=== PATIENT | male | born 1990 | race Hispanic/Latino ===

== ENCOUNTER 2020-03-02 14:09 | Emergency (ER) | payer OTHER, SELFPAY ==
--- NOTE | 2020-03-02 14:35 | ED.UPPEXIN ---
HPI - Extremity Injury (Upper) General Chief Complaint: Wound/Laceration Stated Complaint: finger injury Source: patient and RN notes reviewed Mode of arrival: ambulatory Limitations: no limitations Related Data Home Medications Medication Instructions Recorded Confirmed No Home Medications 03/02/20 03/02/20 Allergies Allergy/AdvReac Type Severity Reaction Status Date / Time No Known Allergies Allergy Unverified 09/11/17 19:13 Review of Systems Review of Systems: Narrative: CONSTITUTIONAL: Denies malaise, chills, sweats, or fever. EYES: Denies visual changes, redness, or discharge. ENT: Denies rhinorrhea, congestion, sinus pain, otalgia or sore throat. CARDIOVASCULAR: Denies chest pain, palpitations, or edema. RESPIRATORY: Denies cough or dyspnea. GASTROINTESTINAL: Denies abdominal pain, nausea, vomiting, diarrhea, bloody, or mucous stools. GENITOURINARY: Denies dysuria or hematuria. SKIN: Denies rash or itching. MUSCULOSKELETAL: Denies back pain, joint pain, or myalgia. NEUROLOGIC: Denies numbness, weakness, or headache. PSYCHIATRIC: Denies anxiety or depression. All systems reviewed & are unremarkable except as noted in HPI and below PMFSH Comments At time of signature, agree with nursing past medical, surgical, social and family history. There is no relevant family history pertinent to the presenting complaint Exam Narrative: Exam Narrative: GENERAL: Well-appearing, well-nourished, and in no acute distress. HEAD: Normocephalic, atraumatic. EYES: PERRLA, conjunctivae clear NECK: Supple. CHEST: Speaks in full sentences. No respiratory distress. HEART: Regular rate and rhythm. Normal and equal peripheral pulses. EXTREMITIES: Right/Left hand and digits of hand have normal strength and sensation. 5/5 strength with digit flexion, extension. Range of motion normal. No clubbing, cyanosis, or edema noted. No tenderness. Skin intact. Normal digital cascade with flexion of fingers, median, ulnar and radial nerve intact. Normal sensation of each side of finger. Can perform 'okay' sign, 'cross over finger test of index and middle fingers' and 'thumbs up' sign. No scissoring. Normal thumb opposition. Good capillary refill and radial pulse. Distal capillary refill ?3 seconds. NEURO: Alert and oriented x3. PSYCH: Normal mood and affect Course Course Emergency Course: Patient is aware of diagnosis, understands and agrees to treatment plan. Anticipatory guidance given. Patient agrees to follow-up as directed and is aware of reasons to seek care at the emergency department. Portions of this record may have been created with voice recognition software Vital Signs Vital signs: Reviewed. Critical Care Time Critical Care Time Critical Care Time: No Discharge Plan Discharge Prescriptions: No Action No Home Medications RF: 0
[2020-03-02 14:36] VITALS: BP 133/78; PULSE 85; RESP 16; TEMP 36.9; O2SAT 99
--- NOTE | 2020-03-02 14:44 | ED.WOUNDLAC ---
HPI - Wound/Laceration General Chief Complaint: Wound/Laceration Stated Complaint: finger injury Time Seen by Provider: 03/02/20 14:44 Source: patient and RN notes reviewed Mode of arrival: ambulatory Limitations: no limitations History of Present Illness HPI narrative: 29-year-old male presents with concern for laceration to the third digit of his right hand palmar aspect of the tip of the digit. Reports he stuck his hand and side of a truck and cut it on something metal, he is unsure what. He reports he had a tetanus shot last year. Extremity Location: Right: hand Related Data Home Medications Medication Instructions Recorded Confirmed No Home Medications 03/02/20 03/02/20 Allergies Allergy/AdvReac Type Severity Reaction Status Date / Time No Known Allergies Allergy Unverified 09/11/17 19:13 Review of Systems Review of Systems: Narrative: CONSTITUTIONAL: Denies malaise, chills, sweats, or fever. SKIN: Reports laceration to the tip of the third digit of the right hand in the palmar aspect MUSCULOSKELETAL: Denies decreased strength or range of motion NEUROLOGIC: Denies numbness, weakness. All systems reviewed & are unremarkable except as noted in HPI and below PMFSH Comments At time of signature, agree with nursing past medical, surgical, social and family history. There is no relevant family history pertinent to the presenting complaint Exam Narrative: Exam Narrative: GENERAL: Well-appearing, well-nourished, and in no acute distress. HEAD: Normocephalic, atraumatic. EYES: PERRLA, conjunctivae clear NECK: Supple. CHEST: Speaks in full sentences. No respiratory distress. HEART: Regular rate and rhythm. Normal and equal peripheral pulses. EXTREMITIES: Right third digit digits of hand have normal strength and sensation. 5/5 strength with digit flexion, extension. Range of motion normal. No clubbing, cyanosis, or edema noted. No tenderness. Normal digital cascade with flexion of fingers, median, ulnar and radial nerve intact. Normal sensation of each side of finger. Can perform 'okay' sign, 'cross over finger test of index and middle fingers' and 'thumbs up' sign. No scissoring. Normal thumb opposition. Good capillary refill and radial pulse. Distal capillary refill ?3 seconds. Skin: 2 cm linear but slightly irregular laceration into the subcutaneous tissue noted to the palmar aspect of the third digit beyond the DIP joint NEURO: Alert and oriented x3. PSYCH: Normal mood and affect Extrem: Hand/finger images: 1. Laceration Course Course Emergency Course: Patient is aware of diagnosis, understands and agrees to treatment plan. Anticipatory guidance given. Patient agrees to follow-up as directed and is aware of reasons to seek care at the emergency department. Portions of this record may have been created with voice recognition software Vital Signs Vital signs: Vital Signs Temperature 98.4 F 03/02/20 14:36 Pulse Rate 85 03/02/20 14:36 Respiratory Rate 16 03/02/20 14:36 Blood Pressure 133/78 03/02/20 14:36 Pulse Oximetry 99 03/02/20 14:36 Temperature 98.4 F 03/02/20 14:36 Pulse Rate 85 03/02/20 14:36 Respiratory Rate 16 03/02/20 14:36 Blood Pressure 133/78 03/02/20 14:36 Pulse Oximetry 99 03/02/20 14:36 Reviewed. Pt has been instructed to follow up with his primary care provider within the next week regarding his elevated blood pressure today. Procedures Laceration Laceration 1: Date: 03/02/20 Time: 14:50 Site: hand Side (If applicable): right Size (cm): 2 Description: irregular Depth: simple, single layer Local Anesthetic: lidocaine 1% Amount of anesthesia used (mL): 2 ====== Skin Level ====== Skin layer closed with: nylon Size (cm): 5-0 Number of sutures: 6 Technique: simple, interrupted ====== Subcutaneous Layer ====== ====== Muscle Layer ====== =====
== END 2020-03-02 15:27 | disposition home or self-care (01) ==
PROVIDERS: Emergency Provider Nurse Practitioner
DX: S61.212A Laceration without foreign body of right middle finger without damage to nail, initial encounter (principal); W22.8XXA Striking against or struck by other objects, initial encounter
CPT/HCPCS: 12001; 99212; G0463

== ENCOUNTER 2020-03-14 15:31 | Emergency (ER) | payer OTHER, SELFPAY ==
[2020-03-14 15:48] VITALS: BP 132/81; PULSE 74; RESP 16; TEMP 37.1; O2SAT 99
--- NOTE | 2020-03-14 15:55 | ED.WOUNDLAC ---
HPI - Wound/Laceration General Chief Complaint: Wound/Laceration Stated Complaint: Stitches removal Time Seen by Provider: 03/14/20 15:55 Source: patient and RN notes reviewed Mode of arrival: ambulatory Limitations: no limitations History of Present Illness HPI narrative: This is a 29 years old male presented office for suture removal. He reports that the wound is healing well; however one of the stitches came off by itself two days ago. He also reports tingling sensation on the tip of his finger; which he had when he cut his finger and it is still there. I reviewed patient's previous visit. HPI - Wound/Laceration General Chief Complaint: Wound/Laceration Stated Complaint: finger injury Time Seen by Provider: 03/02/20 14:44 Source: patient and RN notes reviewed Mode of arrival: ambulatory Limitations: no limitations History of Present Illness HPI narrative: 29-year-old male presents with concern for laceration to the third digit of his right hand palmar aspect of the tip of the digit. Reports he stuck his hand and side of a truck and cut it on something metal, he is unsure what. He reports he had a tetanus shot last year. Extremity Location: Right: hand Related Data Home Medications Medication Instructions Recorded Confirmed No Home Medications 03/02/20 03/14/20 Allergies Allergy/AdvReac Type Severity Reaction Status Date / Time No Known Allergies Allergy Unverified 03/14/20 15:49 Review of Systems Review of Systems: Narrative: CONSTITUTIONAL: Denies fever or feeling ill CARDIOVASCULAR: Denies chest pain RESPIRATORY: Denies dyspnea GASTROINTESTINAL: Denies nausea, vomiting SKIN: Denies redness/swollen MUSCULOSKELETAL: Reports tingling sensation on the tip of his third digit NEUROLOGIC: Denies focal weakness All other systems reviewed are negative, except as documented in HPI. PMFSH Comments At time of signature, I agree with nursing past medical, surgical, social and family history. There is no relevant family history pertinent to the presenting complaint. Exam Narrative: Exam Narrative: GENERAL: This is a well-nourished, well-developed patient, in no apparent distress. CARDIOVASCULAR: Regular rate and rhythm without murmurs, gallops, or rubs. RESPIRATORY: Clear to auscultation. Breath sounds equal bilaterally. No wheezes, rales, or rhonchi. GASTROINTESTINAL: Abdomen soft, non-tender, nondistended. Bowel sounds are active. No guarding. NEURO: awake, alert, and oriented to person, place and time. There were no obvious focal neurologic abnormalities. Steady gait EXTREMITIES: Normal range of motion in all fingers with brisk cap refill. No edema.Left distal dorsal third phalange noted 5stitches; wound is healing as expected. Wound is cleaned with alcohol swap prior to removal of stitches. No adverse effect [place] Coma Scale Eye Opening: Spontaneous 4 [place]uc[place] Coma Scale Motor: Obeys Commands 6 Arlette Coma Scale Verbal: Oriented 5 Course Vital Signs Vital signs: Vital Signs Temperature 98.7 F 03/14/20 15:48 Pulse Rate 74 03/14/20 15:48 Respiratory Rate 16 03/14/20 15:48 Blood Pressure 132/81 03/14/20 15:48 Pulse Oximetry 99 03/14/20 15:48 Temperature 98.7 F 03/14/20 15:48 Pulse Rate 74 03/14/20 15:48 Respiratory Rate 16 03/14/20 15:48 Blood Pressure 132/81 03/14/20 15:48 Pulse Oximetry 99 03/14/20 15:48 MDM - Wound/Laceration MDM Narrative Medical decision making narrative: Discharge instructions reviewed with patient, as well as provided in writing per nursing staff. The instructions also include specific and strict return/GO TO THE ER as well as f/u information. All questions have been answered, and the patient deny any further questions with discharge and discharge plan. Differential Diagnosis Differential diagnosis: Likely other (wound care) Critical Care Time Critical Care Time Critical Care Time: No Discharge Plan Discharge Clinical Impres
== END 2020-03-14 16:05 | disposition home or self-care (01) ==
PROVIDERS: Emergency Provider Nurse Practitioner
DX: S61.212D Laceration without foreign body of right middle finger without damage to nail, subsequent encounter (principal); W22.8XXD Striking against or struck by other objects, subsequent encounter
CPT/HCPCS: 99211; G0463

== ENCOUNTER 2021-12-05 16:01 | Emergency (ER) | payer OTHER, SELFPAY ==
--- NOTE | ~2021-12-05 | XR_ITS ---
EXAMINATION: XR lumbar spine 2-3V EXAM DATE: 12/05/2021 17:07 INDICATION: Left low back pain? etiology. TECHNIQUE: Lumber spine frontal, lateral, lateral L5-S1 projections for interpretation. Comparison is made to prior examination from 05/09/2017. FINDINGS: There are no bony erosions identified. Mild lumbar facet arthropathy. Neck were aligned in Sacrum, sacroiliac joints, sacral arcuate lines are intact. Paraspinal soft tissue is unremarkable. There is no significant interval change. IMPRESSION: Mild lumbar facet arthropathy. Reviewed, dictated and finalized at location G.
[2021-12-05 16:09] VITALS: BP 139/72; PULSE 64; RESP 16; TEMP 37.1; O2SAT 99
--- NOTE | 2021-12-05 16:29 | ED.BACK ---
HPI - Back Pain/Injury General Chief Complaint: Back Pain/Injury Stated Complaint: PAIN LOWER BACK Time Seen by Provider: 12/05/21 16:30 Source: patient, family and RN notes reviewed Mode of arrival: ambulatory Limitations: no limitations History of Present Illness HPI Narrative: 30-year-old male presents to the [facility] with complaints of left lower back pain without injury. Patient states a few years ago had the same complaint. States that he was given arthritis MD elicited complaint: back pain Related Data Allergies Allergy/AdvReac Type Severity Reaction Status Date / Time No Known Allergies Allergy Verified 12/05/21 16:39 Review of Systems Review of Systems: All systems reviewed & are unremarkable except as noted in HPI and below Constitutional: Constitutional: Reports no additional constitutional complaints, Denies fatigue and Denies weakness Eyes: Eyes: Reports no additional eye complaints ENT: Reports system reviewed and no additional complaints, except as documented Cardiovascular: Cardiovascular: Reports no additional cardiovascular complaints and Denies chest pain Respiratory: Respiratory: Reports no additional respiratory complaints, Denies cough and Denies dyspnea Gastrointestinal: Gastrointestinal: Reports no additional gastrointestinal complaints, Denies abdominal pain, Denies constipation, Denies diarrhea, Denies nausea and Denies vomiting Musculoskeletal: Musculoskeletal: Reports as per HPI, Reports back pain (Left lower) and Denies numbness Integumentary/Breasts: Skin/Breast: Reports system reviewed and no additional complaints, except as docu Neurologic: Reports system reviewed and no additional complaints, except as documented, Denies focal weakness, Denies numbness and Denies weakness Psychiatric: Psychiatric: Reports no additional psychiatric complaints Allergic/Immunologic: Allergic/Immunologic: Reports no additional allergic/immunologic complaints PMFSH Comments At the time of my signature, I reviewed and agree with the nursing past medical, surgical, social, and family history. There is no relevant family history pertinent to the patient complaint. Exam Const: General: healthy appearing, no acute distress, alert, acute distress (Pain) mild, uncomfortable and well groomed Nutritional Appearance: well nourished Orientation/consciousness: patient oriented x3 Limitations: no limitations HENMT: Head: normal to inspection Ears: external ears normal Eyes: Pupils: Equal, round and reactive pupils present Neck: Neck: normal visual inspection, no lymphadenopathy and no meningeal signs Chest: Chest palpation & inspection: normal inspection of the chest Resp: Effort & Inspection: normal respiratory effort and no use of accessory muscles Auscultation: clear to auscultation bilaterally, no crackles, no rales, no rhonchi and no wheezes Cardio: Rate: regular rate Rhythm: regular rhythm GI: GI Palp: Yes Soft to palpation, No Tenderness to palpation present (GI) and No Guarding due to palpation present (GI) Back/Spine/Pelvis: Back: No erythema and No warmth Cervical Spine: normal cervical lordosis, No Cervical spine tenderness and No step off deformity Thoracic/Lumbar Spine: thoracic and lumbar spine normal to inspection, No thoraco-lumbar spasm, No thoracic spinal tenderness and No lumbar spinal tenderness Pelvis: no pain with anterior-posterior compression and no pain with lateral compression Sacroiliac joints: on the left tender to palpation Sacrum: no ecchymosis and no erythema Back/spine/pelvis image: 1. Pain with movement, changing position, palpation Skin: General skin exam: normal color Rashes: no rashes Wounds: no wounds Neuro: General: patient oriented x3, moves all extremities, no meningeal signs and no focal motor deficits Cranial nerves: Yes Equal, round and reactive pupils present Speech: normal speech Gait exam (Neuro): Normal gait present Extrem: General: normal to in
[2021-12-05] MEDS: KETOROLAC (*BKC) 60 MG/2 ML VIAL IM (16:50)
== END 2021-12-05 17:40 | disposition home or self-care (01) ==
PROVIDERS: Emergency Provider Nurse Practitioner
DX: M47.816 Spondylosis without myelopathy or radiculopathy, lumbar region (principal)
CPT/HCPCS: 72100; 96372; 99213; G0463; J1885

== ENCOUNTER 2021-12-19 17:26 | Emergency (ER) | payer OTHER, SELFPAY ==
--- NOTE | ~2021-12-19 | XR_ITS ---
EXAMINATION: XR chest 2V Exam Date/Time: 12/19/2021 18:00 CDT CLINICAL HISTORY: LT SIDE SHARP CP WITH INSPIRATION SINCE DOING DRUGS 12/16/21 Comparison: None available RESULT: Lines, tubes, and devices: None. Lungs and pleura: Clear. Cardiomediastinal silhouette: Normal cardiomediastinal silhouette. Other: No acute osseous or upper abdominal finding. IMPRESSION: No acute cardiopulmonary process. Reviewed, dictated and finalized at location K.
--- NOTE | 2021-12-19 17:51 | ECG_ITS ---
Measurements Intervals [place] Rate: 89 P: 59 MS: 151 QRS: 56 QRSD: 91 T: 50 QT: 342 QTc: 417 Interpretive Statements SINUS RHYTHM NO PREVIOUS ECG AVAILABLE FOR COMPARISON Electronically Signed On 12-20-2021 14:17:04 CDT by Shanique Warren M.D.
[2021-12-19 17:53] VITALS: BP 151/89; PULSE 84; RESP 16; TEMP 37.3; O2SAT 100
[2021-12-19 18:03] LABS: Basophils Absolute Auto 0.1 K/mm3 (0.0-0.1); Basophils Percent Auto 0.5 % (0.2-1.2); Eosinophils Absolute Auto 0.3 K/mm3 (0-0.3); Eosinophils Percent Auto 2.9 % (0-4.4); Hematocrit 42.8 % (42.0-52.0); Hemoglobin 14.8 g/dL (14.0-18.0); Immature Granulocyte Absolute 0.06 K/mm3 (0.00-0.031); Immature Granulocyte Percent A 0.6 % (0-0.5); Lymphocytes Absolute Auto 3.04 K/mm3 (0.9-3.2); Lymphocytes Percent Auto 31.7 % (18.3-44.2); Mean Corpuscular HGB Conc 34.6 g/dl (32-36); Mean Corpuscular Hemoglobin 30.1 pg (26-34); Mean Corpuscular Volume 87.2 fl (80-100); Mean Platelet Volume 10.7 fl (7.4-10.4); Monocytes Absolute Auto 0.8 K/mm3 (0.1-0.6); Monocytes Percent Auto 8.5 % (2.6-8.5); Neutrophils Absolute Auto 5.3 K/mm3 (1.3-6.7); Neutrophils Percent Auto 55.8 % (45.5-73.1); Platelet Count Result 281 k/mm3 (150-375); Red Blood Count 4.91 M/mm3 (4.6-6.20); Red Cell Distribution Width 11.9 % (11.5-14.5); White Blood Count 9.6 K/mm3 (4.5-10.0)
[2021-12-19 18:12] LABS: Prothrombin Time 12.4 Seconds (11.1-14.7)
[2021-12-19 18:13] LABS: Alanine Aminotransferase 22 U/L (4-50); Albumin Level 4.6 g/dL (3.5-5.1); Alkaline Phosphatase 68 U/L (38-126); Anion Gap 9 mmol/L (8-16); Aspartate Amino Transferase 42 U/L (17-59); Bilirubin,Total 0.4 mg/dL (0.2-1.3); Blood Urea Nitrogen 18 mg/dL (9-20); Calcium 9.3 mg/dL (8.4-10.2); Carbon Dioxide 26 mmol/L (22-30); Chloride 98 mmol/L (98-107); Estimated CRCL calculation 99 ml/min; Estimated Glomerular Filt Rate > 60; Glucose 120 mg/dL (65-110); Lipase 77 U/L (23-300); Partial Thromboplastin Time 24.2 SECONDS (22.3-36.8); Potassium 3.2 mmol/L (3.4-5.0); Sodium 133 mmol/L (137-145)
[2021-12-19 18:24] LABS: Troponin I < 0.012 ng/mL (0.000-0.034)
--- NOTE | 2021-12-19 18:29 | ED.CHESTPAIN ---
HPI - Chest Pain General Chief Complaint: Chest Pain Stated Complaint: CP Time Seen by Provider: 12/19/21 18:21 History of Present Illness HPI narrative: 30-year-old male patient presents to the emergency room with complaints of left anterior chest pain since Saturday. Patient states the pain is reproducible with inspiration. Patient states that prior to the onset of his chest pain, he was doing methamphetamine. Patient also states that he is about unable to sleep since using the mouth. Patient denies taking any medications to alleviate his symptoms. Denies shortness of breath, fever, syncope, nausea. Related Data Allergies Allergy/AdvReac Type Severity Reaction Status Date / Time No Known Allergies Allergy Verified 12/19/21 18:42 Review of Systems Review of Systems: CONSTITUTIONAL: Denies fever, chills, or sweats. EYES: Denies visual changes, redness, or discharge. ENT: Denies rhinorrhea, congestion, sore throat, or otalgia. CARDIOVASCULAR: Reports chest pain RESPIRATORY: Denies cough or dyspnea. GASTROINTESTINAL: Denies abdominal pain, nausea, vomiting, or diarrhea. GENITOURINARY: Denies dysuria or hematuria. SKIN: Denies rash or itching. MUSCULOSKELETAL: Denies back pain, joint pain, or myalgia. NEUROLOGIC: Denies headache, numbness, dizziness, or weakness. PSYCHIATRIC: Denies anxiety or depression. Exam Narrative: GENERAL: Well-appearing, well-nourished, and in no acute distress. HEAD: Normocephalic, atraumatic. EYES: PERRLA and EOMI. CHEST: Clear to auscultation. No respiratory distress. No wheezes rales or rhonchi HEART: Regular rate and rhythm. No murmur heard. Normal peripheral pulses. EXTREMITIES: Normal range of motion. No edema. SKIN: Warm, dry, no rash. NEURO: No focal deficits. Alert and oriented x3. PSYCH: Normal mood and affect. Course Vital Signs Vital signs: Vital Signs Temperature 37.3 C 12/19/21 17:53 Pulse Rate 84 12/19/21 17:53 Respiratory Rate 16 12/19/21 17:53 Blood Pressure 151/89 H 12/19/21 17:53 Pulse Oximetry 100 12/19/21 17:53 Temperature 37.3 C 12/19/21 17:53 Pulse Rate 65 12/19/21 19:26 Respiratory Rate 16 12/19/21 19:23 Blood Pressure 124/78 12/19/21 19:23 Pulse Oximetry 100 12/19/21 19:23 MDM - Chest Pain MDM Narrative Medical decision making narrative: 30-year-old male presented emergency room complaints of chest pain that he has had for 3 days after smoking methamphetamine. Patient states the pain is worse with inspiration. CBC was unremarkable. CMP shows hypokalemia slightly elevated blood sugar. 2 troponins were negative. Chest x-ray showed no cardiopulmonary disease. EKG normal with no ectopy. Patient given IM Toradol, he states that he had some improvement with his pain. Educated patient to abstain from illicit drug use. Lab Data Result diagrams: 12/19/21 17:56 12/19/21 17:56 Labs: Lab Results 12/19/21 12/19/21 12/19/21 Range/Units 17:56 17:56 17:56 WBC 9.6 (4.5-10.0) K/mm3 RBC 4.91 (4.6-6.20) M/mm3 Hgb 14.8 (14.0-18.0) g/dL Hct 42.8 (42.0-52.0) % MCV 87.2 (80-100) fl MCH 30.1 (26-34) pg MCHC 34.6 (32-36) g/dl RDW 11.9 (11.5-14.5) % Plt Count 281 (150-375) k/mm3 MPV 10.7 H (7.4-10.4) fl Immature Gran % (Auto) 0.6 H (0-0.5) % Neut % (Auto) 55.8 (45.5-73.1) % Lymph % (Auto) 31.7 (18.3-44.2) % [place] % (Auto) 8.5 (2.6-8.5) % Eos % (Auto) 2.9 (0-4.4) % Baso % (Auto) 0.5 (0.2-1.2) % Lymph # (Auto) 3.04 (0.9-3.2) K/mm3 [place] # (Auto) 0.8 H (0.1-0.6) K/mm3 Eos # (Auto) 0.3 (0-0.3) K/mm3 Baso # (Auto) 0.1 (0.0-0.1) K/mm3 Abs Immat Gran (auto) 0.06 H (0.00-0.031) K/mm3 Absolute Neuts (auto) 5.3 (1.3-6.7) K/mm3 Absolute Nucleated RBC 0.0 (0.0-0.012) K/mm3 Nucleated RBC % 0.0 (0.0-0.2) % PT 12.4 (11.1-14.7) Seconds INR 1.0 APTT 24.2 (22.3-36.8) SECONDS Sodium 133 L
[2021-12-19] MEDS: KETOROLAC (*BKC) 60 MG/2 ML VIAL IM (18:45)
[2021-12-19 19:07] LABS: Barbiturate Screen Urine Negative (Negative); Benzodiazepines Screen Urine Negative (Negative)
[2021-12-19 19:19] LABS: Cannabinoid Screen Urine Negative (Negative); Cocaine Screen Urine Negative (Negative); Methadone Screen Urine Negative (Negative); Opiate Screen Urine Negative (Negative); Phencyclidine Screen Urine Negative (Negative)
[2021-12-19 19:23] VITALS: BP 124/78; PULSE 65; RESP 16; O2SAT 100
--- NOTE | 2021-12-19 19:23 | PC.NURSE ---
Assuming care of pt.
[2021-12-19 19:26] VITALS: PULSE 65
[2021-12-19 19:34] LABS: Amphetamine Screen Urine Positive (Negative)
== END 2021-12-19 19:40 | disposition home or self-care (01) ==
PROVIDERS: Emergency Medicine; Emergency Provider Nurse Practitioner Family; PCP Emergency Medicine
DX: F15.10 Other stimulant abuse, uncomplicated (principal); R07.9 Chest pain, unspecified
CPT/HCPCS: 36415; 71046; 80053; 80307; 83690; 84484; 85025; 85610; 85730; 93005; 96372; 99284; J1885

== ENCOUNTER 2023-01-22 16:43 | Outpatient (CLI) | payer OTHER, SELFPAY ==
--- NOTE | ~2023-01-22 | MR_ITS ---
MRI of the lumbar spine Clinical History: Back pain Technique: Axial T2-weighted images, and sagittal T1-weighted, T2-weighted, and T2 fat-sat images wer e acquired. Findings: There is no fracture or subluxation of the lumbar spine. Vertebral bodies maintain normal h eight and alignment. No bone marrow signal abnormality seen. At L1-L2, L2-L3, L3-L4, intervertebral discs maintain normal signal and position. No disc bulge or he rniation T levels. No spinal canal stenosis or neural foraminal narrowing at these levels. At L4-L5, there is disc desiccation with mild disc bulge and small annular fissure. There is minimal facet arthropathy. No essie spinal canal stenosis or neural foraminal narrowing. At L5-S1, there is minimal disc bulge with minimal degenerative disc change. There is mild facet arth ropathy bilaterally. No central canal stenosis or essie neural foraminal narrowing. Paravertebral soft tissues are unremarkable. Impression: Minimal degenerative disc changes at L4-L5 and L5-S1, as detailed above. Reviewed, dictated and finalized at location . Impression: Minimal degenerative disc changes at L4-L5 and L5-S1, as detailed above.
== END 2023-01-22 16:44 | disposition home or self-care (01) ==
PROVIDERS: PCP Emergency Medicine; Visit Provider Emergency Medicine
DX: M54.41 Lumbago with sciatica, right side (principal); M51.37 Other intervertebral disc degeneration, lumbosacral region; M51.36 Other intervertebral disc degeneration, lumbar region
CPT/HCPCS: 72148

== ENCOUNTER 2023-10-03 17:48 | Emergency (ER) | payer OTHER, SELFPAY ==
[2023-10-03 18:06] VITALS: BP 143/84; PULSE 79; RESP 16; TEMP 36.9; O2SAT 100
--- NOTE | 2023-10-03 18:19 | ED.BACK ---
HPI - Back Pain/Injury General Chief Complaint: Extremity Injury, Lower Stated Complaint: pain in left leg Time Seen by Provider: 10/03/23 17:51 Source: patient Mode of arrival: ambulatory Limitations: no limitations History of Present Illness HPI Narrative: Phill is a 30-year-old male patient presenting to the clinic today with complaints of left-sided low back/hip pain radiating into his left lower extremity. Reports that this has been going on for the past week. Has been taking some ibuprofen as needed for pain with minimal relief. Had a injury to his back and January of last year and had an MRI completed. States they did injections in the right lumbar spine but did not do injections on the left side. He reports that he told them that his left low back hurt but they did not address it at that time. Denies any new injury to his back. Denies any saddle anesthesia or loss of bowel bladder. He has a steady gait. Related Data Home Medications Medication Instructions Recorded Confirmed meloxicam 15 mg tablet 15 mg PO DAILY 10/03/23 10/03/23 methocarbamol 750 mg tablet 750 mg PO TID 10/03/23 10/03/23 Allergies Allergy/AdvReac Type Severity Reaction Status Date / Time No Known Allergies Allergy Verified 09/04/22 10:41 Review of Systems Review of Systems: Pertinent positives per HPI. Patient denies any fever, chills, rash, headache, visual changes, dizziness, cough, runny nose, sore throat, shortness of breath, chest pain, palpitations, nausea, vomiting, diarrhea, constipation, abdominal pain, or any urinary issues. PMFSH Comments At the time of my signature, I reviewed and agree with the nursing past medical, surgical, social, and family history. There is no relevant family history pertinent to the patient complaint. Exam Narrative: General: Well-developed, well nourished, in no apparent distress Head: Normocephalic, atraumatic. Cardio: Regular rate and rhythm, s1 and s2 normal, no murmur appreciated. Resp: Clear to auscultation bilaterally, no rhonchi, rales, wheezing or rubs. Musculoskeletal: No deformity, tender to palpation over the left lower back/posterior hip with pain radiating down the leg, mild pain with internal and external rotation of the hip, grossly normal range of motion, muscle strength strong and equal, peripheral pulse strong, patellar reflexes 2+ bilaterally, negative for foot drop, pain at approximately 80? with straight leg test, no edema, no cyanosis, normal gait and station Course Course Emergency Course: Portions of this record may have been created with voice recognition software. Level of Care: Express Care Visit Vital Signs Vital signs: Vital Signs Temperature 36.9 C 10/03/23 18:06 Pulse Rate 79 10/03/23 18:06 Respiratory Rate 16 10/03/23 18:06 Blood Pressure 143/84 H 10/03/23 18:06 Pulse Oximetry 100 10/03/23 18:06 Oxygen Delivery Room Air 10/03/23 18:06 Temperature 36.9 C 10/03/23 18:06 Pulse Rate 79 10/03/23 18:06 Respiratory Rate 16 10/03/23 18:06 Blood Pressure 143/84 H 10/03/23 18:06 Pulse Oximetry 100 10/03/23 18:06 Oxygen Delivery Room Air 10/03/23 18:06 Vital signs reviewed MDM - Back Pain/Injury MDM Narrative Medical decision making narrative: At the time of visit patient is resting comfortably on the exam table. Patient appears to be nontoxic. I suspect patient has left-sided low back pain with sciatica. Prescription for Medrol Dosepak was sent to the pharmacy. Prescription for naproxen was also sent to the pharmacy. Discussed holding meloxicam if he is taking the naproxen. Supportive measures were discussed with the patient and they voiced understanding discharge instructions and agrees to treatment plan. Return precautions reviewed Differential Diagnosis Differential diagnosis: Likely lumbar radiculopathy, sciatica, strain of lumbar region and discitis Discharge Plan Discharge Clinical Impression: Acute low
== END 2023-10-03 18:37 | disposition home or self-care (01) ==
PROVIDERS: Emergency Provider Nurse Practitioner Family; PCP Emergency Medicine
DX: M54.42 Lumbago with sciatica, left side (principal)
CPT/HCPCS: 99213; G0463

== ENCOUNTER 2024-06-13 15:07 | Emergency (ER) | payer MEDICAID, SELFPAY ==
--- NOTE | 2024-06-13 15:14 | ED.URI ---
HPI - URI/Sore Throat General Chief Complaint: Upper Respiratory Infection Stated Complaint: Sore throat Time Seen by Provider: 06/13/24 15:30 Source: patient Mode of arrival: ambulatory Limitations: no limitations History of Present Illness HPI Narrative: Phill is a 33-year-old male patient presenting to the clinic today with complaints of a sore throat x3 days. He denies any runny nose, cough, or congestion. Denies any fever, chills, or body aches. MD elicited complaint: sore throat Related Data Allergies Allergy/AdvReac Type Severity Reaction Status Date / Time No Known Allergies Allergy Verified 06/13/24 15:32 Review of Systems Review of Systems: Pertinent positives per HPI. Patient denies any fever, chills, rash, headache, visual changes, dizziness, cough, shortness of breath, chest pain, palpitations, nausea, vomiting, diarrhea, constipation, abdominal pain, or any urinary issues. PMFSH Comments At the time of my signature, I reviewed and agree with the nursing past medical, surgical, social, and family history. There is no relevant family history pertinent to the patient complaint. Exam Narrative: General: Well-developed, well nourished, in no apparent distress Head: Normocephalic, atraumatic Eyes: Pupils equally round and reactive to light bilaterally, EOM intact, sclera and conjunctive clear, no discharge, lids normal Ears: TMs intact and clear, ear canals clear, no drainage, grossly hearing normal. Nose: Nares patent, no discharge, no inflammation, no sinus tenderness. Mouth: Oral pharynx red with bilateral tonsillar enlargement 2+ without lesions or masses, good dentition, MMM. Even rise and fall of the uvula Neck: Supple, trachea midline, no enlargement of anterior or posterior cervical nodes, no thyroid masses or goiter palpable. Cardio: Regular rate and rhythm, s1 and s2 normal, no murmur appreciated. Resp: Clear to auscultation bilaterally, no rhonchi, rales, wheezing or rubs Course Course Emergency Course: Portions of this record may have been created with voice recognition software. Level of Care: Express Care Visit Vital Signs Vital signs: Vital Signs Temperature 37.0 C 06/13/24 15:25 Pulse Rate 72 06/13/24 15:25 Respiratory Rate 20 06/13/24 15:25 Blood Pressure 110/78 06/13/24 15:25 Pulse Oximetry 100 06/13/24 15:25 Oxygen Delivery Room Air 06/13/24 15:25 Temperature 37.0 C 06/13/24 15:25 Pulse Rate 72 06/13/24 15:25 Respiratory Rate 20 06/13/24 15:25 Blood Pressure 110/78 06/13/24 15:25 Pulse Oximetry 100 06/13/24 15:25 Oxygen Delivery Room Air 06/13/24 15:25 Vital signs reviewed MDM - URI/Sore Throat MDM Narrative Medical decision making narrative: At the time of visit patient is resting comfortably on the exam table. Patient appears to be nontoxic. Plan: I suspect patient has viral pharyngitis. Prescription for viscous lidocaine and prednisone was sent to the pharmacy as patient does have pretty swollen tonsils. Supportive measures were discussed with the patient and they voiced understanding discharge instructions and agrees to treatment plan. Return precautions reviewed Differential Diagnosis Differential diagnosis: Likely upper respiratory infection, otitis media, sinusitis, viral infection, bronchitis, influenza, pharyngitis and other (COVID) Discharge Plan Discharge Clinical Impression: Pharyngitis Patient Disposition: Home, Self-Care Condition: Stable Instructions: Antibiotic Form, Pharyngitis (ED) Additional Instructions: Strep test was negative in the clinic today. We will send strep for culture Take prescription medications only as prescribed-prednisone and viscous lidocaine Increase fluids and stay well hydrated Tylenol/motrin for pain/fever Flonase and OTC antihistamines as directed Vicks vapor rub to open sinuses Sinus rinses for congestion Cepacol spray, cough drops, throat lozen
[2024-06-13 15:25] VITALS: BP 110/78; PULSE 72; RESP 20; TEMP 37; O2SAT 100
[2024-06-15 14:28] LABS: EDSTREPNEGPOS1 Negative (Negative)
== END 2024-06-13 16:11 | disposition home or self-care (01) ==
PROVIDERS: Emergency Provider Nurse Practitioner Family; PCP Emergency Medicine
DX: J02.9 Acute pharyngitis, unspecified (principal)
CPT/HCPCS: 87081; 87880; 99213; G0463